=== PATIENT | female | born 1945 | race Caucasian/White ===

== ENCOUNTER → 2016-08-02 | Outpatient (CLI) | payer OTHER ==
[~2016-08-02] MED LIST: AMLO-114 PO; CALC500C70 PO; CARV3.122 PO; HYDR25TA4 PO; LOSA1TAB38 PO; POTA10CA28 PO; SIMV20TA2 PO
[2016-08-02 14:00] LABS: BLOOD UREA NITROGEN 16 mg/dl (7-18); BUN/CREATININE RATIO 15.9 (10-20); CALCIUM 9.5 mg/dl (8.5-10.1); CARBON DIOXIDE 33 mmol/L (21-32); CHLORIDE 97 mmol/L (98-107); GLUCOSE 108 mg/dl (70-99); POTASSIUM 3.8 mmol/L (3.5-5.1); SODIUM 135 mmol/L (136-145)
[2016-08-02 14:03] LABS: ALT/SGPT 19 U/L (12-78); AST/SGOT 16 U/L (15-37); CHOLESTEROL 162 mg/dl (0-200); CHOLESTEROL/HDL RATIO 1.6; HDL CHOLESTEROL 100 mg/dl; LDL CHOLESTEROL CALCULATED 54 mg/dl; TRIGLYCERIDES 41 mg/dl (0-150); VERY LOW DENSITY LIPOPROT CALC 8 mg/dl
== END | disposition home or self-care (01) ==
LOC: C.LABMFLN 07:31
PROVIDERS: ATTEND Family Medicine
DX: E78.00 Pure hypercholesterolemia, unspecified (principal); I10 Essential (primary) hypertension; I73.9 Peripheral vascular disease, unspecified

== ENCOUNTER → 2017-02-05 | Outpatient (CLI) | payer OTHER ==
[2017-02-05 13:39] LABS: BLOOD UREA NITROGEN 15 mg/dl (7-18); GLUCOSE 100 mg/dl (70-99)
[2017-02-05 13:40] LABS: ALT/SGPT 17 U/L (12-78); AST/SGOT 13 U/L (15-37); BUN/CREATININE RATIO 15.1 (10-20); CALCIUM 9.9 mg/dl (8.5-10.1); CARBON DIOXIDE 34 mmol/L (21-32); CHLORIDE 97 mmol/L (98-107); CHOLESTEROL 165 mg/dl (0-200); POTASSIUM 3.5 mmol/L (3.5-5.1); SODIUM 135 mmol/L (136-145); TRIGLYCERIDES 48 mg/dl (0-150); VERY LOW DENSITY LIPOPROT CALC 10 mg/dl
[2017-02-05 13:41] LABS: CHOLESTEROL/HDL RATIO 1.8; HDL CHOLESTEROL 90 mg/dl; LDL CHOLESTEROL CALCULATED 65 mg/dl
== END | disposition home or self-care (01) ==
LOC: C.LABMFLN 07:09
PROVIDERS: ATTEND Family Medicine
DX: E78.00 Pure hypercholesterolemia, unspecified (principal); I10 Essential (primary) hypertension; I73.9 Peripheral vascular disease, unspecified

== ENCOUNTER → 2017-03-11 | Outpatient (CLI) | payer OTHER ==
[~2017-03-11] VITALS: Ht 157.5 cm; Wt 50.7 kg
[2017-03-11 09:31] VITALS: Ht 157.5 cm; Wt 50.7 kg
--- NOTE | 2017-03-11 10:03 | PAT Medication Instructions ---
Service Date Mar 11, 2017. Current Home Medication List Amlodipine (Norvasc), 10 MG PO QAM Calcium/Vitamin D (Os-Jeet 500 Plus D), 1 TAB PO HS Carvedilol (Coreg), 1 TAB PO BID Hydrochlorothiazide (Hctz), 25 MG PO HS Losartan Potassium (Cozaar), 100 MG PO QAM Potassium Chloride (Micro-K Ext Rel), 10 MEQ PO QAM Simvastatin (Zocor), 20 MG PO QPM Medication Instructions For Your Scheduled Surgery - Hold the following medications the morning of surgery: Losartan Potassium (Cozaar), 100 MG PO QAM Potassium Chloride (Micro-K Ext Rel), 10 MEQ PO QAM - Take the following medications the morning of surgery with a sip of water OTHERWISE NOTHING TO EAT OR DRINK AFTER MIDNIGHT: Amlodipine (Norvasc), 10 MG PO QAM Carvedilol (Coreg), 1 TAB PO BID - Take the following medications as scheduled the night before surgery: Carvedilol (Coreg), 1 TAB PO BID Calcium/Vitamin D (Os-Jeet 500 Plus D), 1 TAB PO HS Hydrochlorothiazide (Hctz), 25 MG PO HS Simvastatin (Zocor), 20 MG PO QPM If you have any questions please call us at [phone] or [phone] or [phone]
[2017-03-11 10:49] LABS: BASO % 0.5 %; BASO ABS # 0.04 K/uL (0-0.2); COMPLETE YES; EOS % 1.5 %; HEMATOCRIT 43.4 % (37-47); IG% 0.2 %; LYMPH % 19.1 %; LYMPH ABS # 1.67 K/uL (1.2-3.4); MEAN CELL VOLUME 94.1 fL (80-100); MEAN CORPUSCULAR HEMOGLOBIN 32.8 pg (25-34); MEAN CORPUSCULAR HGB CONC 34.8 g/dl (32-36); MEAN PLATELET VOLUME 10.4 fL (7.4-10.4); MONO % 9.9 %; NEUT % 68.8 %; PLATELET COUNT 195 K/uL (130-400); RED BLOOD COUNT 4.61 M/uL (4.2-5.4); WHITE BLOOD COUNT 8.75 K/uL (4.8-10.8)
--- NOTE | 2017-03-11 10:59 | DIAGNOSTIC IMAGING REPORT ---
CHEST 2 VIEWS ROUTINE HISTORY: 71 years-old Female preadmission exam. COMPARISON: CTA of the abdomen and pelvis 01/26/2016 TECHNIQUE: Frontal and lateral views of the chest. FINDINGS: There is a 3.4 x 4.6 cm masslike opacity of the right lower lobe. There is blunting of the posterior costophrenic angles bilaterally. No pneumothorax identified. Cardiac silhouette is within normal limits. There is atherosclerosis of the aorta. The bones are grossly intact. Peripheral calcified aneurysm dilation of the proximal abdominal aorta is again noted. This measures up to approximately 4.7 cm in AP dimension. IMPRESSION: 1. Masslike opacity of the right lower lobe measuring up to 4.6 cm requires further evaluation with CT of the chest. 2. Mild blunting of the bilateral posterior costophrenic angles may be secondary to atelectasis or trace pleural effusions. 3. Tortuous partially calcified aneurysmal dilation of the proximal abdominal aorta is again noted. The above report was generated using voice recognition software. It may contain grammatical, syntax or spelling errors. Electronically signed by: Tung Mendez M.D. 03/11/2017 10:58 AM Dictated Date/Time: 03/11/2017 10:53 AM
[2017-03-11 11:06] LABS: PARTIAL THROMBOPLASTIN RATIO 1.1; PROTHROMBIN TIME (PATIENT) 11.2 SECONDS (9.0-12.0)
[2017-03-11 11:14] LABS: BUN/CREATININE RATIO 12.2 (10-20); CALCIUM 9.5 mg/dl (8.5-10.1); CREATININE 1.2 mg/dl (0.60-1.20); POTASSIUM 3.9 mmol/L (3.5-5.1)
== END | disposition home or self-care (01) ==
LOC: C.LAB 08:00 → EDSTATUS 03-20 10:47
PROVIDERS: ATTEND Surgery Vascular Surgery
DX: Z01.810 Encounter for preprocedural cardiovascular examination (principal); Z01.811 Encounter for preprocedural respiratory examination; Z01.812 Encounter for preprocedural laboratory examination; R91.8 Other nonspecific abnormal finding of lung field; I71.4 Abdominal aortic aneurysm, without rupture; R94.31 Abnormal electrocardiogram [ECG] [EKG]

== ENCOUNTER → 2017-03-15 | Outpatient (CLI) | payer OTHER ==
--- NOTE | 2017-03-15 09:47 | DIAGNOSTIC IMAGING REPORT ---
(CHEST) THORAX WITHOUT CT DOSE: 188.88 mGy.cm HISTORY: Follow-up chest x-ray abnormality. Possible LUNG NODULE, CHEST WITHOUT PER DR. LONDONO TECHNIQUE: Multiaxial CT images of the chest were performed without contrast. A dose lowering technique was utilized adhering to the principles of ALARA. COMPARISON: Chest 03/11/2017. FINDINGS: Small amount of mucoid material within the bilateral bronchi. Mild emphysema. No pneumothorax. Calcified granuloma seen within the base of the left lower lobe. Linear density at the lung bases favor subsegmental atelectasis. Minimal right pleural fluid. There is a 3.1 x 2.5 cm spiculated mass within the right lower lobe which abuts the right posterior pleura. There is also a 4.3 x 3.4 cm spiculated mass within the right infrahilar location of the right lower lobe. This surrounds multiple lower lobe bronchi. This abuts and retracts the right major fissure and may extend into the right middle lobe. There is mild nodular thickening of the right major fissure and mild interlobular septal thickening within the base the right lower lobe. This is concerning for lymphangitic spread of disease. No suspicious lytic or blastic osseous lesions. No supraclavicular or axillary lymphadenopathy. Visualized unenhanced liver, spleen, and adrenal glands are unremarkable. Atrophic right kidney. A 3.3 cm partially visualized abdominal aortic aneurysm. Calcified plaque within the thoracic aorta. The heart is normal in size. Mildly enlarged subcarinal lymph node measuring 1.5 x 1.2 cm. Mildly enlarged precarinal lymph node measuring 1.4 x 1.1 cm. These are concerning for sites of metastatic disease. IMPRESSION: 1. There are 2 masses within the right lower lobe which measure 3.1 x 2.5 cm and 4.3 x 3.4 cm. These are consistent with primary bronchogenic malignancy/metastatic disease. Bronchoscopy is recommended for further evaluation. 2. The larger right lower lobe mass abuts and retracts the right major fissure and may extend into the right middle lobe. There is also interlobular septal thickening within the right lower lobe and mild thickening of the right major fissure. This is concerning for lymphangitic spread of disease. 3. Mildly enlarged mediastinal and subcarinal lymph nodes. This is worrisome for metastatic spread of disease. 4. Emphysema. Electronically signed by: Frank Harrington M.D. 03/15/2017 9:45 AM Dictated Date/Time: 03/15/2017 9:32 AM
== END | disposition home or self-care (01) ==
LOC: C.CTS 08:59
PROVIDERS: ATTEND Family Medicine
DX: R91.1 Solitary pulmonary nodule (principal); R91.8 Other nonspecific abnormal finding of lung field; J43.9 Emphysema, unspecified

== ENCOUNTER 2017-09-04 13:51 | Inpatient (IN) | payer OTHER ==
[~2017-09-04] VITALS: Ht 157.5 cm; Wt 47.3 kg
[2017-09-04 14:11] VITALS: BP 143/62; PULSE 61; TEMP 36.5; BMI 18.1
[2017-09-04 14:12] VITALS: O2SAT 91
[2017-09-04] MEDS ORDERED: POLYETHYLENE (MIRALAX) 17 GM PACK PO PRN (15:15)
[2017-09-04] MEDS ORDERED: ACETAMINOPHEN 325 MG TAB PO PRN (15:15)
[2017-09-04] MEDS ORDERED: ALUMINUM/MAGNESIUM/SIMETH (MAALOX MAX) 30 ML UDC PO PRN (15:15)
[2017-09-04] MEDS ORDERED: MAGNESIUM HYDROXIDE SUSP 30 ML UDC PO PRN (15:15)
[2017-09-04] MEDS ORDERED: APIX1TAB3 PO (15:23)
[2017-09-04] MEDS ORDERED: POTA1CAP2 PO (15:23)
[2017-09-04] MEDS ORDERED: UMEC1AER INH (15:23)
[2017-09-04] MEDS: SODIUM CHLORIDE 0.9% 1000ML 1,000 ML IV SCH (16:05)
--- NOTE | 2017-09-04 16:07 | History and Physical ---
History & Physical Date & Time of Service: Sep 04, 2017 at 15:32 Chief Complaint: AKF Primary Care Physician: Rome Morris M.D. History of Present Illness Source: patient, family, clinic records, hospital records This is a 71 y/o female with a history of HTN, HLD, anemia, COPD, non-small cell lung carcinoma, CKD stage III, AAA, h/o DVT and PE on Eliquis, and PVD who presented for direct admission from PCP on 09/04 with acute renal failure, weakness, dehydration, vomiting, and diarrhea. The patient has a history of lung cancer for which she had been receiving chemotherapy. Her last session was 08/19. Since then, she states she has been more weak and fatigued. She has had very little/no appetite with intermittent nausea and vomiting. She also reports diarrhea, with 5-6 BMs a day for the last week. This has exacerbated her weakness. She also complains of dizziness with standing and was found to be orthostatic at her PCP. She has had multiple falls recently related to weakness and dizziness. She denies any head trauma or LOC. She twisted her ankle about 2 days ago. She went to the ER and a x-ray showed no fracture. The patient denies fevers, chills, sweats, chest pain, palpitations, claudication, cough, wheezing, shortness of breath, abdominal pain, dysuria, hematuria, urinary retention, hematochezia, paralysis, focal motor weakness, numbness and tingling. Past Medical/Surgical History HTN HLD Anemia COPD Non-small cell lung carcinoma CKD stage III AAA H/o DVT and PE PVD Family History Hypertension Stroke Social History Smoking Status: Former Smoker (quit December 2015) Smokeless Tobacco Use: No Alcohol Use: none Drug Use: none Marital Status: Housing status: lives with family (with son) Occupational Status: retired Allergies Coded Allergies: Lisinopril (Verified Adverse Reaction, Unknown, DRY HACKING COUGH, 03/11/17 ) Home Medications Scheduled Amlodipine (Norvasc), 10 MG PO QAM Apixaban (Eliquis), 5 MG PO BID Calcium/Vitamin D (Os-Jeet 500 Plus D), 1 TAB PO HS Carvedilol (Coreg), 1 TAB PO BID Losartan Potassium (Cozaar), 100 MG PO QAM Potassium Chloride (Micro-K Ext Rel), 20 MEQ PO QAM Potassium Chloride (Potassium Chloride Er), 1 CAP PO HS Umeclidinium-Vilanterol (Anoro Ellipta 62.5-25 Mcg/INH), 2 PUFFS INH DAILY Review of Systems Constitutional: +Weak and fatigued. No fever, No chills, No sweats Eyes: No worsening of vision, No eye pain, No diplopia ENT: No hearing loss, No nasal symptoms, No trouble swallowing Respiratory: No cough, No wheezing, No shortness of breath Cardiovascular: No chest pain, No claudication, No palpitations Abdomen: +Nausea, vomiting, diarrhea. No pain Musculoskeletal: +Left ankle sore. No muscle pain, No swelling Genitourinary - Female: No dysuria, No urinary retention, No hematuria Neurologic: No paralysis, No weakness, No numbness/tingling Integumentary: No rash, No itch, No color change Physical Exam Vital Signs Date Time Temp Pulse Resp B/P (MAP) Pulse Ox O2 Delivery O2 Flow Rate FiO2 09/04/17 14:12 91 Room Air 09/04/17 14:11 36.5 61 18 143/62 General appearance: +Underweight. Well-developed, well-nourished, no apparent distress Head: Normocephalic, atraumatic Eyes: Normal inspection, PERRL, EOMI ENT: Normal ENT inspection, hearing grossly normal, pharynx normal Neck: Supple, no JVD, trachea midline Respiratory/Chest: Lungs clear to auscultation, normal breath sounds, no respiratory distress Cardiovascular: Regular rate & rhythm, no gallop, no murmur Abdomen/GI: Normal bowel sounds, non-tender, soft Extremities/Musculoskeletal: +Left ankle in theodora wrap. Dorsal aspect left foot TTP. Normal inspection, no calf tenderness, no pedal edema Neurological/Psych: Alert, normal mood/affect, oriented x 3 Skin: Normal color, warm/dry, no rash Diagnostics Laboratory Results Results Past 24 Hours Test 09/04/17 15:09 Range/Units Microbiology Results 09/04/17 C.difficile Toxin B Gene (PCR), Ordered Pending 09/04/17 Shiga Toxin Test, Ordered Pending 09/04/17 Stool Culture, Ordered Pending Impression Assessment and Plan 71 y/o female with a history of HTN, HLD, anemia, COPD, non-small cell lung carcinoma, CKD stage III, AAA, h/o DVT and PE on Eliquis, and PVD who presented for direct admission from PCP on 09/04 with acute renal failure, weakness, dehydration, vomiting, and diarrhea. Acute renal failure on CKD stage III--baseline creatinine around 1.0 -Admit to telemetry -Creatinine 1.8 on 09/04 per outside labs -Hydrate with NSS at 80 cc/hr -Hold losartan for now N/V/D, weakness and fatigue -Likely related to recent chemo but will check for infectious sources -Check C. diff, stool culture -Check rapid flu -Check UA, culture if indicated -Check orthostatic BP q shift. Pt's BP at PCP was 78/40 upon standing HTN, HLD--BP currently stable -Continue Coreg 3.125 mg PO BID, hold if SBP less than 100 or HR less than 60 -Continue Norvasc 10 mg PO qd -Hold losartan as above. No longer on statin Anemia, likely secondary to chemo -Hgb 8.4, stable from last week 08/27 which was 8.7 -PLT down to 32, had been up to 81 last week -Hold Eliquis COPD, non-small cell lung carcinoma--pt wants to change oncologists -Consult heme/onc, appreciate recs especially w/regards to anticoagulation. Question if Eliquis best choice in setting of malignancy -Continue Anoro 2 puffs inh qd (non-formulary) H/o DVT and PE -Eliquis on hold as above -Consult vascular surgery to assess for IVC filter DVT prophylaxis -Hold chemical ppx due to PLT count 32 -SCDs Code Status -Level I, FULL RESUSCITATION STATUS I personally interviewed and examined the patient. I agree with history of present illness and physical exam mentioned above, I also performed my own history taking and examination. Past medical history and review of system has been obtained by myself I reviewed all pertinent labs and studies Reviewed current medications I discussed and formulated of the assessment and plan mentioned above. Please refer to the Summary mentioned below. 71-year-old woman with COPD/hypertension on chemotherapy for non-small cell lung cancer and history of DVT/PE on Eliquis presented to her primary care physician office with generalized weakness fatigue, multiple falls. Based on her blood work her creatinine jumped from 1 to 1.8 , also has diarrhea and decreased oral intake. Upon my interview with the patient and her family the were adamant that they want a new oncologist to take over care. Assessment Acute kidney injury on chronic kidney disease Chronic kidney disease stage II Diarrhea/decreased oral intake/nausea likely old because of her kidney disease Non-small cell lung cancer started chemotherapy on August 19 Multiple falls/dizziness Dehydration secondary to decreased oral intake and diarrhea COPD Hypertension, currently has orthostatic hypotension Thrombocytopenia Epistaxis History of DVT/PE on Eliquis Plan IV fluid hydration Monitor renal function and hold nephrotoxic Check urine analysis Consult oncologist Hold Eliquis due to thrombocytopenia and epistaxis Patient will need IVC filter Platelets are 30,000 in the setting of her frequent epistaxis we will hold Eliquis but will consult vascular surgeon for IVC filter General Appearance: not in acute distress, but appears cachectic Eyes: normal Sclerae, extraocular muscle intact ENT: hearing grossly normal Neck: supple Respiratory/Chest: normal air entry bilateral ,no respiratory distress, no accessory muscle use Cardiovascular: regular rate, rhythm, no murmur Abdomen: non tender, soft, no masses Extremities: no edema Neurologic/Psychiatric: Awake alert oriented times place and person moves all extremities sensation intact cranial nerves II-12 appear to be intact Skin: normal color, warm/dry, no rash Isaak Rush MD, [facility] Level of Care Telemetry Advanced Directives Existing Living Will: No Existing Power of Courtroom Reporter: No Resuscitation Status FULL RESUSCITATION VTE Prophylaxis VTE Risk Assessment Done? Y/N: Yes Risk Level: High Given or contraindicated: SCD's
[2017-09-04 16:23] VITALS: BP 109/47; PULSE 58; TEMP 36.4; O2SAT 91
[2017-09-04 16:39] LABS: INFLUENZA B ANTIGEN Neg for Influ B (NEG)
[2017-09-04] MEDS: NYSTATIN SUSP 500,000 U/5 ML UDC PO SCH ×2 (17:08→20:41)
[2017-09-04] MEDS: CARVEDILOL 3.125 MG TAB PO SCH (20:16)
[2017-09-04 20:36] VITALS: BP 115/45; PULSE 54; TEMP 36.8; O2SAT 91
[2017-09-04] MEDS: CALCIUM 600MG + VIT D 400 IU TAB PO SCH (20:41)
[2017-09-04] MEDS ORDERED: POTASSIUM CHLORIDE 10 MEQ TABCR PO SCH (21:00)
[2017-09-05] VITALS (9 sets, daily range): BP systolic 102–160; BP diastolic 44–67; PULSE 60–90; TEMP 36.7–37.1; O2SAT 90–94; Ht 157.5 cm; Wt 47.3 kg
[2017-09-05] MEDS: SODIUM CHLORIDE 0.9% 1000ML 1,000 ML IV SCH ×2 (04:16→17:25)
[2017-09-05 07:42] LABS: CALCIUM 8.9 mg/dl (8.5-10.1); CREATININE 1.6 mg/dl (0.60-1.20); POTASSIUM 4.8 mmol/L (3.5-5.1)
[2017-09-05] MEDS: CARVEDILOL 3.125 MG TAB PO SCH ×2 (07:45→20:21)
[2017-09-05] MEDS: NYSTATIN SUSP 500,000 U/5 ML UDC PO SCH ×4 (07:45→20:21)
[2017-09-05 07:51] LABS: HEMATOCRIT 25.9 % (37-47); HEMOGLOBIN 8.7 g/dL (12.0-16.0); MEAN CELL VOLUME 102.4 fL (80-100); MEAN CORPUSCULAR HEMOGLOBIN 34.4 pg (25-34); MEAN CORPUSCULAR HGB CONC 33.6 g/dl (32-36); MEAN PLATELET VOLUME 12.1 fL (7.4-10.4); PLATELET COUNT 35 K/uL (130-400); RED CELL DISTRIBUTION WIDTH CV 12.9 % (11.5-14.5); RED CELL DISTRIBUTION WIDTH SD 47.9 fL (36.4-46.3); WHITE BLOOD COUNT 3.73 K/uL (4.8-10.8)
--- NOTE | 2017-09-05 08:34 | Clinical Documentation Query ---
EUSEBIA Laura : CLINICAL DOCUMENTATION QUERY Patient is a 71 year old female admitted for treatment of BALAJI in the setting of N/V/D with associated decreased oral intake. Recently began chemotherapy August 19 for treatment of non-small cell lung cancer. Historical labs from 03/07 demonstrated normal WBC, RBC's, and platelets. This admission, noted neutropenia, anemia, and thrombocytopenia. As appropriate, consider clarification as suggested below as this impacts accurate DRG assignment. Thank you. In your clinical opinion is this patient being managed for: ( ) Antineoplastic chemotherapy induced pancytopenia ( ) Not Agree ( ) Other explanation of clinical findings (Please Explain) ( xx ) Unable to determine (Please Define) ( ) Need to Discuss The medical record reflects the following clinical findings, treatment, and risk factors. Clinical Indicators: As above Treatment: Holding of Eliquis, serial hematology, Oncology consultation Risk Factors: Chemotherapy Please clarify and document your clinical opinion in the progress notes and discharge summary. Terms such as "probable", "suspected", "likely", "questionable", "possible", or "still to be ruled out" are acceptable. IF IN AGREEMENT, YOU MUST DOCUMENT ABOVE DIAGNOSTIC STATEMENT IN DAILY PROGRESS NOTES AND DISCHARGE SUMMARY. This document is not part of the patient's record. Thank You, Rosendo Rao, STEPHANIE [phone]
--- NOTE | 2017-09-05 08:57 | Hospitalist Progress Note ---
Hospitalist Progress Note Date of Service Sep 05, 2017. (Alyssa Nguyen PA-C) Subjective Pt evaluation today including: conversation w/ patient, physical exam, chart review, lab review, review of studies Pain: None PO Intake: Fair Voiding: no voiding problems The patient was seen and examined this morning. Pt reports doing well this morning. She denies feeling as weak as she was yesterday. She also notes a slight improvement in her nausea, and was able to tolerate breakfast. She is still having diarrhea, liquid, and reports 2 BMs this morning. Nursing has been unable to collect a sample due to incontinence at the same time. Last chemotherapy session was on 08/19, #5/6 treatments. She has the next scheduled for 09/10. This most recent chemo tx was a different agent and was told she would likely not have as extreme side effects, however she feels her side effects are still the same including nausea, metallic taste in mouth, fatigue, skin dryness and peeling on her hands/feet, and diarrhea. With the earlier chemotherapy agent, she has gotten diarrhea about 3-4 days after her chemotherapy. Diarrhea began 7 days after her most recent treatment and has not been yet alleviated. Constitutional: + fatigue, No fever, No chills, No sweats Eyes: No redness, No diplopia ENT: + problem reported (metallic taste in mouth), No unusual epistaxis, No nasal symptoms, No sore throat, No trouble swallowing Respiratory: No cough, No sputum, No wheezing, No shortness of breath Cardiovascular: No chest pain, No palpitations Abdomen: + nausea, + diarrhea, No pain, No vomiting, No constipation, No GI bleeding Musculoskeletal: No joint pain, No muscle pain, No swelling Female : No dysuria, No hematuria Neurologic: + weakness, No memory loss, No numbness/tingling Endo: + fatigue (Alyssa Nguyen PA-C) Objective Vital Signs Date Time Temp Pulse Resp B/P (MAP) Pulse Ox O2 Delivery O2 Flow Rate FiO2 09/05/17 08:04 36.7 74 20 147/63 (91) 92 Room Air 09/05/17 08:00 91 Nasal Cannula 2.0 09/05/17 04:29 36.8 78 18 152/60 (90) 91 Nasal Cannula 2.0 09/05/17 04:10 Nasal Cannula 2.0 09/05/17 00:23 37.1 73 18 132/56 (81) 94 Nasal Cannula 2.0 80 131/44 (73) 90 102/53 (69) 09/04/17 23:40 Nasal Cannula 2.0 09/04/17 20:36 36.8 54 20 115/45 (68) 91 Room Air 09/04/17 20:00 Room Air 09/04/17 16:23 36.4 58 20 109/47 (67) 91 Room Air 09/04/17 16:00 Room Air 09/04/17 14:12 91 Room Air 09/04/17 14:11 36.5 61 18 143/62 (Alyssa Nguyen PA-C) Physical Exam General Appearance: WD/WN, no apparent distress, + thin, + pertinent finding ( small amount of hair regrowth, ) Eyes: PERRL, EOMI ENT: hearing grossly normal, pharynx normal, + pertinent finding (poor dentition, no erythema or skin sloughing inside mouth.) Neck: supple, no JVD Respiratory/Chest: chest non-tender, lungs clear, no respiratory distress, no accessory muscle use, + pertinent finding (on room air) Cardiovascular: regular rate, rhythm Abdomen: normal bowel sounds, non tender, soft Extremities: non-tender, no pedal edema, no calf tenderness, + pertinent finding (Left dorsal foot with faint ecchymosis, NTTP) Neurologic/Psychiatric: alert, normal mood/affect, oriented x 3 Skin: normal color, + pertinent finding (dry, peeling over hands and feet.) (Alyssa Nguyen PA-C) Laboratory Results Last 24 Hours Test 09/04/17 15:50 09/05/17 07:04 Influenza Type A Antigen Neg for Influ A Influenza Type B Antigen Neg for Influ B White Blood Count 3.73 K/uL Red Blood Count 2.53 M/uL Hemoglobin 8.7 g/dL Hematocrit 25.9 % Mean Corpuscular Volume 102.4 fL Mean Corpuscular Hemoglobin 34.4 pg Mean Corpuscular Hemoglobin Concent 33.6 g/dl RDW Standard Deviation 47.9 fL RDW Coefficient of Variation 12.9 % Platelet Count 35 K/uL Mean Platelet Volume 12.1 fL Sodium Level 137 mmol/L Potassium Level 4.8 mmol/L Chloride Level 108 mmol/L Carbon Dioxide Level 22 mmol/L Anion Gap 7.0 mmol/L Blood Urea Nitrogen 11 mg/dl Creatinine 1.60 mg/dl Est Creatinine Clear Calc Drug Dose 24.5 ml/min Estimated GFR () 37.7 Estimated GFR (Non- 32.5 BUN/Creatinine Ratio 6.7 Random Glucose 84 mg/dl Calcium Level 8.9 mg/dl (Alyssa Nguyen, PABenji) Assessment and Plan 71 y/o female with a history of HTN, HLD, anemia, COPD, non-small cell lung carcinoma, CKD stage III, AAA, h/o DVT and PE on Eliquis, and PVD who presented for direct admission from PCP on 09/04 with acute renal failure, weakness, dehydration, vomiting, and diarrhea. Acute renal failure on CKD stage III--baseline creatinine around 1.0 - Creatinine 1.8 on 09/04 per outside labs --improved to 1.6 - Hydrate with NSS at 80 cc/hr - Hold nephrotoxins, including losartan N/V/D, weakness and fatigue ? side effect from Chemotherapy for NSCLC - R/o infectious sources : C. diff, stool culture have been unable to be collected so far per nursing. - Influenza neg - UA appears to have been cancelled, pt denies urinary sx. - Follow orthostatics- had 30 point drop last night. Pt denies sx with standing and walking to bathroom today. NSCLC Antineoplastic chemotherapy induced pancytopenia - [facility] and she wishes to change oncologists. - Dr. Plummer has been consulted - appreciate his recs and will plan to continue care with our team as an outpatient. Records from [facility] will need to be obtained. appreciate recs especially w/regards to anticoagulation. Eliquis ok if plt > 50 so holding -Hgb 8.7, appears to be around baseline -PLT =35, had been up to 81 last week - will follow CBC and watch for further improvement. H/o DVT and PE - Clot determined to be new - discussed with Haven Jackson - vascular surg planning on placing a IVC filter tomorrow. NPO after midnight. HTN HLD -Continue Coreg 3.125 mg PO BID, hold if SBP less than 100 or HR less than 60, Norvasc 10 mg PO qd, holding losartan - not on statin therapy COPD -Continue Anoro 2 puffs inh qd (non-formulary) DVT ppx: Scds, no chemical anticoagulation in the setting of thrombocytopenia CODE : Full Disposition: From home, lives alone. PT/OT evals. Plan for IVC filter placement tomorrow. (Alyssa Nguyen PA-C) PA Physician Supervision Note: I interviewed and examined the patient. Discussed with Alyssa Nguyen PAC and agree with findings and plan as documented in the note. Any exceptions or clarifications are listed here: None Patient presents with persistent nausea vomiting diarrhea after chemotherapy for she's taking her non-small cell lung cancer. The patient has some renal distress because of this due to dehydration. The patient requests a second opinion from oncologist different than the one she is currently being treated reportedly she's had 5-6 treatments for her non-small cell lung cancer. The patient currently resting comfortably her family is surrounding her she's able tolerate oral intake at this time Vital signs are stable Patient looks chronically ill as which she is receiving chemotherapy she has short hair flaky skin and appears weak Her current lung exam is with changes of COPD with prolonged expiratory phase no focal air loss or wheezing or abdomen is normal active bowel sounds soft nontender Patient presents with renal distress from acute diarrheal illness likely contributed to by her recent chemotherapy will continue supportive care watching her renal function treating her underlying COPD and having opinion from Dr. Plummer Documented By: Que Rogel (Que Rogel M.D.)
[2017-09-05] MEDS ORDERED: POTASSIUM CHLORIDE 10 MEQ TABCR PO SCH (09:00)
[2017-09-05] MEDS ORDERED: LOSARTAN POTASSIUM 50 MG TAB PO SCH (09:00)
[2017-09-05] MEDS ORDERED: AMLODIPINE BESYLATE 5 MG TAB PO SCH (09:00)
--- NOTE | 2017-09-05 12:32 | Clinical Documentation Query ---
DELFINA MENDEZ : CLINICAL DOCUMENTATION QUERY Patient is a 71 year old female admitted for treatment of BALAJI in the setting of N/V/D with associated decreased oral intake. Recently began chemotherapy August 19 for treatment of non-small cell lung cancer. Historical labs from 03/07 demonstrated normal WBC, RBC's, and platelets. This admission, noted neutropenia, anemia, and thrombocytopenia. As appropriate, consider clarification as suggested below as this impacts accurate DRG assignment. Thank you. In your clinical opinion is this patient being managed for: ( x ) Antineoplastic chemotherapy induced pancytopenia ( ) Not Agree ( ) Other explanation of clinical findings (Please Explain) ( ) Unable to determine (Please Define) ( ) Need to Discuss The medical record reflects the following clinical findings, treatment, and risk factors. Clinical Indicators: As above Treatment: Holding of Eliquis, serial hematology, Oncology consultation Risk Factors: Chemotherapy Please clarify and document your clinical opinion in the progress notes and discharge summary. Terms such as "probable", "suspected", "likely", "questionable", "possible", or "still to be ruled out" are acceptable. IF IN AGREEMENT, YOU MUST DOCUMENT ABOVE DIAGNOSTIC STATEMENT IN DAILY PROGRESS NOTES AND DISCHARGE SUMMARY. This document is not part of the patient's record. Thank You, Rosendo Rao, STEPHANIE [phone]
--- NOTE | 2017-09-05 14:29 | Oncology Consultation ---
Oncology/Heme Consultation Date of Consultation: Sep 05, 2017. Attending Physician: Isaak Lima MD Reason for Consultation: History of lung carcinoma History of Present Illness Ms Harrison is a 71-year-old female with a history of lung carcinoma. She is a fair historian. She states she was diagnosed in February of last year. She states that she is unaware of where all the disease may have spread. She has been treated with chemotherapy. She believes it is only one drug and has been every 3 weeks with the last treatment being August 19. She is now admitted cytopenic and fatigued. She denies shortness of breath or chest pain. She denies any blood in her stool. She denies any hemoptysis. She has been on Eliquis for the past 2 years I believe after having a pulmonary embolus. She has expressed a desire to switch oncologists. Past Medical/Surgical History Lung carcinoma Pancytopenia History of pulmonary embolus Family History Hypertension Stroke Social History Smoking Status: Former Smoker (quit December 2015) Smokeless Tobacco Use: No Alcohol Use: none Drug Use: none Marital Status: Occupation Status: retired Allergies Coded Allergies: Lisinopril (Verified Adverse Reaction, Mild, DRY HACKING COUGH, 09/04/17) Home Medications Scheduled Amlodipine (Norvasc), 10 MG PO QAM Apixaban (Eliquis), 5 MG PO BID Calcium/Vitamin D (Os-Jeet 500 Plus D), 1 TAB PO HS Carvedilol (Coreg), 1 TAB PO BID Losartan Potassium (Cozaar), 100 MG PO QAM Potassium Chloride (Micro-K Ext Rel), 20 MEQ PO QAM Potassium Chloride (Potassium Chloride Er), 1 CAP PO HS Umeclidinium-Vilanterol (Anoro Ellipta 62.5-25 Mcg/INH), 2 PUFFS INH DAILY Current Inpatient Medications Current Inpatient Medications Medications (Trade) Dose Ordered Sig/Cassi Route Start Time Stop Time Status Last Admin Dose Admin Sodium Chloride 1,000 ml @ 80 mls/hr [id number] IV 09/04/17 15:09 10/04/17 15:08 09/05/17 04:16 80 MLS/HR Acetaminophen (Tylenol Tab) 650 mg Q4H PRN PO 09/04/17 15:15 10/04/17 15:14 Al Hydrox/Mg Hydrox/Simethicone (Maalox Max Susp) 15 ml Q4H PRN PO 09/04/17 15:15 10/04/17 15:14 Magnesium Hydroxide (Milk Of Magnesia Susp) 30 ml Q12H PRN PO 09/04/17 15:15 10/04/17 15:14 Ondansetron HCl (Zofran Inj) 4 mg Q6H PRN IV 09/04/17 15:15 10/04/17 15:14 Polyethylene (Miralax Powder Packet) 17 gm DAILY PRN PO 09/04/17 15:15 10/04/17 15:14 Calcium/Vitamin D (Caltrate Plus Tab) 1 tab HS PO 09/04/17 21:00 10/04/17 20:59 09/04/17 20:41 1 TAB Carvedilol (Coreg Tab) 3.125 mg BID PO 09/04/17 21:00 10/04/17 20:59 09/05/17 07:45 3.125 MG Miscellaneous Information (Order Awaiting Action) 1 ea QS N/A 09/04/17 16:00 10/04/17 15:59 Nystatin (Mycostatin Susp) 5 ml QID PO 09/04/17 17:00 09/14/17 16:59 09/05/17 13:05 5 ML Review of Systems Constitutional: Negative for weight loss, night sweats, or fever Eyes: Negative for event change of vision ENT: Negative for epistaxis, nasal discharge, sore throat, or deafness Cardiovascular: Negative for chest pain, palpitations, dizziness, diaphoresis Respiratory: Negative for new shortness of breath,hemoptysis, or purulent cough Gastrointestinal: Negative for diarrhea, hematemesis, melena, nausea, vomiting , or dyspepsia Integumentary (skin): Negative for rash or jaundice discoloration Genitourinary: Negative for urinary frequency, hematuria, or dysuria Neurological: Negative for weakness, seizure activity, headache, or dizziness Lymphatic/Hematologic: Negative for petechiae, bleeding or new adenopathy Musculoskeletal: Negative for new joint or back pain Allergic/Immunologic: Negative for unusual rash or pruritis. Physical Exam Date Time Temp Pulse Resp B/P (MAP) Pulse Ox O2 Delivery O2 Flow Rate FiO2 09/05/17 12:00 91 Nasal Cannula 2.0 09/05/17 12:00 36.8 60 18 141/67 (91) 91 Nasal Cannula 2.0 09/05/17 08:04 36.7 74 20 147/63 (91) 92 Room Air 09/05/17 08:00 91 Nasal Cannula 2.0 09/05/17 04:29 36.8 78 18 152/60 (90) 91 Nasal Cannula 2.0 09/05/17 04:10 Nasal Cannula 2.0 09/05/17 00:23 37.1 73 18 132/56 (81) 94 Nasal Cannula 2.0 80 131/44 (73) 90 102/53 (69) 09/04/17 23:40 Nasal Cannula 2.0 09/04/17 20:36 36.8 54 20 115/45 (68) 91 Room Air 09/04/17 20:00 Room Air 09/04/17 16:23 36.4 58 20 109/47 (67) 91 Room Air 09/04/17 16:00 Room Air Constitutional: vitals are stable. Mildly alopecic delightful female. Eyes: Eyes are CLAUDE EOMI without conjuctival erythema or icterus. ENT: External examination was negative for masses. Neck: Negative for masses or palpable thyromegaly Respiratory: Lung sounds were generally clear bilaterally Cardiovascular: Heart was RRR without significant murmur, gallops aoe rubs Gastrointestinal: No palpable hepatic or splenomegaly. The abdomen was soft with normal bowel sounds. Lymphatic system: there was no palpable peripheral lymphadenopathy Musculoskeletal System: The musculoskeletal system seemed concordant with age. Skin: The skin was negative for jaundice. Neurologic exam: The exam was negative for any focal findings. Deep tendon reflexes were equal and symmetrical. Psychiatric exam: Was essentially negative with normal mood and effect. Breast exam: Not done Extremities: negative for edema Laboratory Results Last 24 Hours Test 09/04/17 15:50 09/05/17 07:04 Influenza Type A Antigen Neg for Influ A Influenza Type B Antigen Neg for Influ B White Blood Count 3.73 K/uL Red Blood Count 2.53 M/uL Hemoglobin 8.7 g/dL Hematocrit 25.9 % Mean Corpuscular Volume 102.4 fL Mean Corpuscular Hemoglobin 34.4 pg Mean Corpuscular Hemoglobin Concent 33.6 g/dl RDW Standard Deviation 47.9 fL RDW Coefficient of Variation 12.9 % Platelet Count 35 K/uL Mean Platelet Volume 12.1 fL Sodium Level 137 mmol/L Potassium Level 4.8 mmol/L Chloride Level 108 mmol/L Carbon Dioxide Level 22 mmol/L Anion Gap 7.0 mmol/L Blood Urea Nitrogen 11 mg/dl Creatinine 1.60 mg/dl Est Creatinine Clear Calc Drug Dose 24.5 ml/min Estimated GFR () 37.7 Estimated GFR (Non- 32.5 BUN/Creatinine Ratio 6.7 Random Glucose 84 mg/dl Calcium Level 8.9 mg/dl Assessment & Plan History of non-small cell lung carcinoma according to the records. Her oncologic care has been in the [facility] and we will gather those records. She has expressed an interest to change oncology practices will arrange for follow-up. Cancer care partnership. In regards to the use of Eliquis as treatment for pulmonary embolus in the setting of carcinoma there has yet to be published definite data guideline data to support its use. However there are more more institutional efforts that demonstrate that the direct oral anticoagulants (DOACs -such as apixiban) are not inferior to the vitamin K antagonist and low molecular weight heparin in efficacy. In fact some of these studies do also demonstrate less complications both physical, quality of life, as well as financial with a drug like Eliquis. Subsequently although there are not confirmed guidelines to place the DO ACs as a therapeutic alternative there is more more data to suggest they could be used. With that then daily Eliquis could continue with her platelet count she is 50,000 or better. We will arrange for follow-up in our clinic. Her blood counts to be checked daily. She remains cytopenic presumably secondary to chemotherapy from August 19. Her blood counts in theory should recover very soon. Fortunately she is not febrile.
[2017-09-05] MEDS: ONDANSETRON INJ 2 MG/ML 2 ML VIAL IV PRN (14:46)
--- NOTE | 2017-09-05 15:18 | Surgery Consultation ---
Consultation Date of Service Sep 05, 2017. Chief Complaint Recent DVT/PE, need IVC filter History of Present Illness The patient is a 71 year old female with multiple medical problems, including HTN, AAA with aortic occlusion, lung ca on chemotherapy, seen in consultation today for IVC filter insertion d/t thrombocytopenia and epistaxis. Pt admits fatigue, malaise. States she had DVT/PE for first time in June 2017 and was started on Eliquis. States has had multiple epistaxis. 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 D/T her significant short distance claudication, pt was to undergo an axillobifemoral bypass. However, a lung mass was discovered during her preop workup and the procedure was not performed. Continues to c/o BLE claudication, LLE worse than RLE. Denies PEDRO, fever, chills, chest pain, SOB , abd pain, N/V, rest pain, other complaints. Vitals Vital Signs Past 12 Hours Date Time Temp Pulse Resp B/P (MAP) Pulse Ox O2 Delivery O2 Flow Rate FiO2 09/05/17 12:00 91 Nasal Cannula 2.0 09/05/17 12:00 36.8 60 18 141/67 (91) 91 Nasal Cannula 2.0 09/05/17 08:04 36.7 74 20 147/63 (91) 92 Room Air 09/05/17 08:00 91 Nasal Cannula 2.0 09/05/17 04:29 36.8 78 18 152/60 (90) 91 Nasal Cannula 2.0 09/05/17 04:10 Nasal Cannula 2.0 Allergies Coded Allergies: Lisinopril (Verified Adverse Reaction, Mild, DRY HACKING COUGH, 09/04/17) Home Medications Scheduled Amlodipine (Norvasc), 10 MG PO QAM Apixaban (Eliquis), 5 MG PO BID Calcium/Vitamin D (Os-Jeet 500 Plus D), 1 TAB PO HS Carvedilol (Coreg), 1 TAB PO BID Losartan Potassium (Cozaar), 100 MG PO QAM Potassium Chloride (Micro-K Ext Rel), 20 MEQ PO QAM Potassium Chloride (Potassium Chloride Er), 1 CAP PO HS Umeclidinium-Vilanterol (Anoro Ellipta 62.5-25 Mcg/INH), 2 PUFFS INH DAILY Problem List Medical Problems: (1) Acute renal failure (2) Weakness Surgical / Medical History Hx Cardiac Surgery: No Hx Abdominal Surgery: Yes (TUBAL) Hx Cancer Surgery: No Hx Thoracic Surgery: No Hx Urinary Tract Surgery: No Past Medical/Surgical History: COPD, Hypertension Family History Hypertension Stroke Social History Smoking Status: Former Smoker (quit December 2015) Hx Tobacco Use In Past Year?: No (QUIT 1 YEAR AGO, HX OF 1/2 PPD X20 YEARS) Hx Alcohol Use - Type & Amnt: No Hx Substance Use -Type & Amnt: No Review of Systems Constitutional: + malaise, No chills, No fever Skin: No change in color Eyes: No visual changes ENMT: No sore throat Respiratory: No cough, No MCCRAY, No hemoptysis, No short of breath Cardiovascular: + intermittent claudication, No chest pain, No palpitations, No syncope, No edema Gastrointestinal: No abdominal pain, No nausea, No vomiting Genitourinary - Female: No dysuria, No hematuria Neurologic: No dizziness, No headache, No lethargy, No numbness, No tingling Physical Exam Constitutional: General Apperance: cachectic, too thin Level of Distress: NAD, chronically ill Psychiatric: Mental Status: active & alert, normal mood, normal affect Orientation: oriented except where noted, to time, to place, to person Memory: recent memory normal, remote memory normal Head: normocephalic, atraumatic Eyes: EOM: EOMI ENMT: normal ENT inspection, hearing grossly normal Neck: supple, trachea midline Lungs: Respiratory effort: no dyspnea Auscultation: no rhonchi, decreased breath sounds Cardiovascular: Apical Impulse: not displaced Heart Auscultation: RRR, no rubs, no gallops Peripheral Pulses: Pulses: full and equal, in all extremities except if noted Bruits: none appreciated Carotid Pulse: normal on the left, normal on the right Brachial Pulses: normal on the left, normal on the right Radial Pulse: normal on the left, normal on the right Femoral Pulse: absent on the left, absent on the right Posterior Tibialis Pulse: absent on the left, absent on the right ( nonpalpable BLE), pertinent finding (Toes warm and pink with brisk cap refill) Dorsalis Pedis Pulse: absent on the left, absent on the right (nonpalpable BLE) Abdomen: Bowel Sounds: normal Inspection & Palpation: soft, non-distended, no tenderness, guarding & rebound Musculoskeletal: normal strength (5/5 throughout), normal tone Extremities: Upper Right: no cyanosis, no edema, no varicosities Upper Left: no cyanosis, no edema, no varicosities Lower Right: no cyanosis, no edema, no varicosities Lower Left: no cyanosis, no edema, no varicosities Neurologic: Cranial Nerves: grossly intact Sensation: grossly intact Assessment and Plan ASSESSMENT and PLAN: Recent DVT/PE Thrombocytopenia Pt also seen by Dr Louie, recommends pt to undergo IVC filter insertion d /t recent DVT/PE. Procedure, risks, benefits, and alternatives discussed with pt and family present, pt expresses understanding and agreement. Scheduled for tomorrow AM.
[2017-09-05] MEDS: BOOST BREEZE NUTRITION DRINK 1 BOX PO SCH (17:23)
[2017-09-05] MEDS: CALCIUM 600MG + VIT D 400 IU TAB PO SCH (20:20)
[2017-09-06] VITALS (10 sets, daily range): BP systolic 117–157; BP diastolic 47–65; PULSE 56–78; TEMP 36.6–37.1; O2SAT 90–95
[2017-09-06] MEDS: SODIUM CHLORIDE 0.9% 1000ML 1,000 ML IV SCH ×2 (05:17→16:51)
[2017-09-06] MEDS ORDERED: CEFAZOLIN 1000MG IV PUSH 7.5 ML IV SCH (06:00)
[2017-09-06 06:55] LABS: HEMATOCRIT 25.3 % (37-47); HEMOGLOBIN 8.6 g/dL (12.0-16.0); MEAN CELL VOLUME 100.8 fL (80-100); MEAN CORPUSCULAR HEMOGLOBIN 34.3 pg (25-34); RED CELL DISTRIBUTION WIDTH SD 48.1 fL (36.4-46.3); WHITE BLOOD COUNT 5.19 K/uL (4.8-10.8)
[2017-09-06 06:59] LABS: MEAN PLATELET VOLUME 10.6 fL (7.4-10.4); PLATELET COUNT 48 K/uL (130-400)
[2017-09-06] MEDS: BOOST BREEZE NUTRITION DRINK 1 BOX PO SCH ×2 (07:30→16:53)
[2017-09-06 07:32] LABS: CALCIUM 8.6 mg/dl (8.5-10.1); CREATININE 1.42 mg/dl (0.60-1.20)
[2017-09-06] MEDS: UMECLIDINIUM-VILANTEROL (ANORO) INH SCH (07:49)
[2017-09-06] MEDS: CARVEDILOL 3.125 MG TAB PO SCH ×2 (07:50→20:41)
[2017-09-06] MEDS: NYSTATIN SUSP 500,000 U/5 ML UDC PO SCH ×4 (07:50→20:41)
[2017-09-06] MEDS ORDERED: CEFAZOLIN IV 1,000 MG in DEXTROSE 5% 50ML 50 ML IV ONE (08:00)
--- NOTE | 2017-09-06 08:47 | Hospitalist Progress Note ---
Hospitalist Progress Note Date of Service Sep 06, 2017. (Alyssa Nguyen PA-C) Subjective Pt evaluation today including: conversation w/ patient, physical exam, chart review, lab review, review of studies Pain: None PO Intake: Good Voiding: no voiding problems The patient was seen and examined this morning. Pt reports doing well today. She is awaiting IVC filter placement this morning. She has no acute complaints this morning. Her two sisters are present at bedside and are keeping her company. PT feels stronger than yesterday. Diarrhea x 1 this morning, but reports this is improved from yesterday. She denies any other abdominal complaints. ROS: Constitutional: No fever, sweats or chills Eyes: No diplopia, no worsening or blurred vision ENT: normal hearing, no trouble swallowing, + metallic taste in mouth Respiratory: +Mild cough, no sputum production, minimally dyspneic on exertion, no dyspnea at rest Cardiovascular: No chest pain, tightness or palpitations Abdomen: No pain, nausea, vomiting, or constipation + diarrhea Musculoskeletal: No joint pain, calf pain, swelling Neurologic: No weakness, numbness/tingling, or balance problems Psychiatric: No anxiety or depression Skin: No rash or itch (Alyssa Nguyen PA-C) Objective Vital Signs Date Time Temp Pulse Resp B/P (MAP) Pulse Ox O2 Delivery O2 Flow Rate FiO2 09/06/17 07:55 37.0 66 18 127/58 (81) 95 09/06/17 04:43 37.0 56 20 131/58 (82) 90 Room Air 09/06/17 04:00 Room Air 09/06/17 00:06 36.8 71 18 118/47 (70) 90 Room Air 09/06/17 00:00 Room Air 09/05/17 20:27 36.7 80 18 160/65 (96) 90 Room Air 09/05/17 20:00 94 Room Air 09/05/17 17:00 36.9 78 18 128/63 (84) 92 Room Air 09/05/17 16:00 92 Room Air 09/05/17 12:00 91 Nasal Cannula 2.0 09/05/17 12:00 36.8 60 18 141/67 (91) 91 Nasal Cannula 2.0 (Alyssa Nguyen, AL) Physical Exam Notes: General Appearance: WD/WN, no apparent distress, + thin, + pertinent finding ( small amount of hair regrowth, diffuse darkened skin pigmentation ) Eyes: PERRL, EOMI ENT: hearing grossly normal, pharynx normal, + pertinent finding (poor dentition) Neck: supple, no JVD Respiratory/Chest: chest non-tender, lungs clear, no respiratory distress, no accessory muscle use, + pertinent finding (on room air) Cardiovascular: regular rate, rhythm Abdomen: normal bowel sounds, non tender, soft Extremities: non-tender, no pedal edema, no calf tenderness, + pertinent finding (Left dorsal foot with faint ecchymosis, NTTP) Neurologic/Psychiatric: alert, normal mood/affect, oriented x 3 Skin: normal color, + pertinent finding (dry, peeling over hands and feet.) (Alyssa Nguyen PA-C) Laboratory Results Last 24 Hours Test 09/05/17 17:35 09/06/17 06:45 Urine Color YELLOW Urine Appearance CLOUDY Urine pH 6.0 Urine Specific [place] 1.005 Urine Protein NEG Urine Glucose (UA) NEG Urine Ketones NEG Urine Occult Blood NEG Urine Nitrite NEG Urine Bilirubin NEG Urine Urobilinogen NEG Urine Leukocyte Esterase TRACE Urine WBC (Auto) 1-5 /hpf Urine RBC (Auto) 0-4 /hpf Urine Hyaline Casts (Auto) 1-5 /lpf Urine Epithelial Cells (Auto) >30 /lpf Urine Bacteria (Auto) NEG White Blood Count 5.19 K/uL Red Blood Count 2.51 M/uL Hemoglobin 8.6 g/dL Hematocrit 25.3 % Mean Corpuscular Volume 100.8 fL Mean Corpuscular Hemoglobin 34.3 pg Mean Corpuscular Hemoglobin Concent 34.0 g/dl RDW Standard Deviation 48.1 fL RDW Coefficient of Variation 13.0 % Platelet Count 48 K/uL Mean Platelet Volume 10.6 fL Sodium Level 140 mmol/L Potassium Level 4.0 mmol/L Chloride Level 110 mmol/L Carbon Dioxide Level 23 mmol/L Anion Gap 8.0 mmol/L Blood Urea Nitrogen 7 mg/dl Creatinine 1.42 mg/dl Est Creatinine Clear Calc Drug Dose 27.8 ml/min Estimated GFR () 43.6 Estimated GFR (Non- 37.6 BUN/Creatinine Ratio 4.9 Random Glucose 90 mg/dl Calcium Level 8.6 mg/dl (Alyssa Nguyen, [place]) Assessment and Plan 71 y/o female with a history of HTN, HLD, anemia, COPD, non-small cell lung carcinoma, CKD stage III, AAA, h/o DVT and PE on Eliquis, and PVD who presented for direct admission from PCP on 09/04 with acute renal failure, weakness, dehydration, vomiting, and diarrhea. Acute renal failure on CKD stage III--baseline creatinine around 1.0 - Creatinine 1.8 on 09/04 per outside labs --improved to 1.6 - Hydrate with NSS at 80 cc/hr - Hold nephrotoxins, including losartan N/V/D, weakness and fatigue ? side effect from Chemotherapy for NSCLC - R/o infectious sources: C. diff, stool culture have been unable to be collected so far per nursing. - Influenza neg - UA appears to have been cancelled, pt denies urinary sx. - Follow orthostatics- Pt denies sx with standing and walking to bathroom today. NSCLC Antineoplastic chemotherapy induced pancytopenia - The patients care has been with Dr. Foote, [facility] and she wishes to change oncologists. - Dr. Plummer has been consulted - appreciate his recs and will plan to continue care with our team as an outpatient. Records from [facility] will need to be obtained. appreciate recs especially w/regards to anticoagulation, holding eliquis. IVC filter being placed today. Will resume eliquis once plt count is > 50 K per Heme/onc. -Hgb 8.6, appears to be around baseline -PLT =48, had previously been up to 81 last week - will follow CBC and watch for further improvement. H/o DVT and PE - Clot determined to be new - discussed with Haven Jackson - vascular surg planning on placing a IVC filter today. HTN HLD - Continue Coreg 3.125 mg PO BID, hold if SBP less than 100 or HR less than 60, Norvasc 10 mg PO qd, holding losartan - not on statin therapy COPD -Continue Anoro 2 puffs inh qd (non-formulary) DVT ppx: Scds, no chemical anticoagulation in the setting of thrombocytopenia, can resume if plt > 50 tomorrow. CODE : Full Disposition: From home, lives alone. PT/OT evals. IVC filter placement today. (Alyssa Nguyen, AL) i personally examined pt and verified all forrester points concetta Nguyen PAC feeling ok post IVC filter thinsk she'll lbe able to do OK going home once she has a chance to recover eating reaosnably vitals noted nad breathing unlabored no pallor or icterus thrombocytopenia and VTE - IVC filter for protection when anticoagulation has to be held otherwise as above stable for med surg, hopefully home tomorrow (Taz Perera D.O.)
--- NOTE | 2017-09-06 10:35 | Progress Note ---
Progress Note Date of Service Sep 06, 2017. Progress Note Patient for insertion of a vena cava filter today. I have discussed the risks options and benefits of the procedure with the patient. The patient understands the risks options and benefits and agrees to the procedure. I have examined the patient, reviewed the History & Physical and in the interval since the performance of the History & Physical I have noted the following changes of clinical significance: No changes noted
[2017-09-06] MEDS ORDERED: FENTANYL CITRATE INJ 50 MCG/1 ML 2 ML VIAL ONE (10:50)
[2017-09-06] MEDS ORDERED: MIDAZOLAM HCL 1 MG/ML 2ML VIAL ONE (10:51)
--- NOTE | 2017-09-06 11:01 | Pre Sedation Assessment ---
Pre Sedation Assessment General Date of Sedation: Sep 06, 2017. Vital Signs Past 12 Hours Date Time Temp Pulse Resp B/P (MAP) Pulse Ox O2 Delivery O2 Flow Rate FiO2 09/06/17 10:49 36.6 62 18 136/51 (79) 91 Room Air 09/06/17 08:00 Room Air 09/06/17 07:55 37.0 66 18 127/58 (81) 95 09/06/17 04:43 37.0 56 20 131/58 (82) 90 Room Air 09/06/17 04:00 Room Air 09/06/17 00:06 36.8 71 18 118/47 (70) 90 Room Air 09/06/17 00:00 Room Air Pre-Sedation Airway Assessment Smoking Status: Former Smoker (quit December 2015) Hx of Sleep Apnea: No Hx of difficult intubation: No Short Thick Neck: No Thyro-mental Distance: > 3 Finger Breadths Oral Cavity: WNL Mallampati Classification: Class I NPO Status Date of Last Intake of Fluids: Sep 06, 2017 Time of Last Intake of Fluids: 00:00 Date of Last Intake of Solids: Sep 06, 2017 Time of Last Intake of Solids: 00:00 Procedure Planning Contraindications for Sedation: None Current Medications Reviewed: Yes Notes The planned sedation has been discussed with the patient. Informed Consent was obtained. I have identified the patient, determined the appropriateness of sedation and have assessed the patient immediately prior to the procedure. All medicine(s) and interventions are by my order.
[2017-09-06] MEDS ORDERED: LIDOCAINE HCL 1% 20 ML VIAL INJ ONE (11:27)
--- NOTE | 2017-09-06 11:40 | [facility] Post Operative Brief Note ---
Immediate Operative Summary Operative Date Sep 06, 2017. Pre-Operative Diagnosis Recent DVT/PE Thrombocytopenia Post-Operative Diagnosis Recent DVT/PE Hypercoaguable Thrombocytopenia Procedure(s) Performed Inferior Vena Cava Filter Placement, Right Femoral Approach Surgeon [employer] Executive Surgeon(s) Pablo Estimated Blood Loss 2 Findings Consistent with Post-Op Diagnosis Specimens None Drains None Anesthesia Type Local Complication(s) none Disposition Accompanied Pt To Recover: no Disposition:
[2017-09-06] MEDS ORDERED: IODIXANOL (VISIPAQUE) 270 MG/ML 50ML IV ONE (11:46)
--- NOTE | 2017-09-06 11:57 | DIAGNOSTIC IMAGING REPORT ---
DATE OF PROCEDURE: 09/06/2017 PREOPERATIVE DIAGNOSIS: Deep venous thrombosis, PE. POSTOPERATIVE DIAGNOSIS: Deep venous thrombosis, PE. PROCEDURE: Placement of IVC filter from right common femoral vein access under ultrasound guidance with fluoroscopy for positioning. SURGEON: Dr. Jamar Louie. WINE SPECIALIST: Dr. Becca Shah. ANESTHESIA: Local anesthesia. COMPLICATIONS: None. ESTIMATED BLOOD LOSS: 2 mL. INDICATIONS: Mrs. Marie Harrison a 71-year-old woman with history of hypertension, hyperlipidemia, anemia, COPD, nonsmall cell lung cancer, stage III kidney disease, abdominal aortic aneurysm; DVT and PE. She was previously treated for her DVT and PE with Eliquis; however, this resulted in significant epistasis. For this reason, her Eliquis was discontinued and she was recommended to undergo IVC filter placement. Of note, her DVT and PE were in June 2017. Risks, benefits and alternatives were discussed with the patient and she consented to the procedure. DESCRIPTION OF PROCEDURE: The patient was taken to the endovascular suite and placed in the supine position. Her right femoral vein was assessed with ultrasound and appeared patent with good respiratory variation and augmentation. It was compressible on ultrasound. The right groin was then prepped and draped in the usual sterile fashion. A safety timeout was performed and the patient, procedure, and sidedness were correctly identified. Ultrasound was again used to identify the right common femoral vein. Local anesthesia was used to anesthetize the skin in this area. An 18-gauge access needle was used to access the right common femoral vein under ultrasound guidance. A guidewire easily passed through the needle and into the inferior vena cava. The needle was removed and a long sheath placed in the right common femoral. A cavogram was obtained and showed the position of the renal veins. The IVC filter was advanced into the sheath and the sheath was withdrawn deploying the IVC filter. The filter deployed without difficulty and appeared to be in good position. The sheath was removed and manual pressure was held over the common femoral vein access site for several minutes with good hemostasis. The patient tolerated the procedure well and there were no immediate complications. She was transferred to the recovery area in stable condition. Dr. Jamar Louie was present for the entire procedure. [facility]ALTH CENTERPayam
[2017-09-06] MEDS: ONDANSETRON INJ 2 MG/ML 2 ML VIAL IV PRN (20:17)
[2017-09-06] MEDS: CALCIUM 600MG + VIT D 400 IU TAB PO SCH (20:41)
[2017-09-07] VITALS (13 sets, daily range): BP systolic 139–174; BP diastolic 53–77; PULSE 50–70; TEMP 36.5–37; O2SAT 90–95
[2017-09-07 06:26] LABS: HEMOGLOBIN 7.8 g/dL (12.0-16.0); MEAN CELL VOLUME 102.6 fL (80-100); MEAN CORPUSCULAR HEMOGLOBIN 33.3 pg (25-34); MEAN CORPUSCULAR HGB CONC 32.5 g/dl (32-36); RED CELL DISTRIBUTION WIDTH CV 12.9 % (11.5-14.5); RED CELL DISTRIBUTION WIDTH SD 47.9 fL (36.4-46.3); WHITE BLOOD COUNT 4.22 K/uL (4.8-10.8)
[2017-09-07 06:28] LABS: MEAN PLATELET VOLUME 10.9 fL (7.4-10.4); PLATELET COUNT 57 K/uL (130-400)
[2017-09-07 07:13] LABS: CALCIUM 8.1 mg/dl (8.5-10.1); CREATININE 1.3 mg/dl (0.60-1.20); POTASSIUM 3.4 mmol/L (3.5-5.1)
[2017-09-07] MEDS ORDERED: POTASSIUM CHLORIDE 10 MEQ TABCR PO STA (09:16)
[2017-09-07] MEDS: SODIUM CHLORIDE 0.9% 1000ML 1,000 ML IV SCH (09:16)
[2017-09-07] MEDS: UMECLIDINIUM-VILANTEROL (ANORO) INH SCH (09:17)
[2017-09-07] MEDS: CARVEDILOL 3.125 MG TAB PO SCH (09:18)
[2017-09-07] MEDS: NYSTATIN SUSP 500,000 U/5 ML UDC PO SCH ×3 (09:18→17:48)
[2017-09-07] MEDS: BOOST BREEZE NUTRITION DRINK 1 BOX PO SCH ×2 (10:15→17:45)
--- NOTE | 2017-09-07 10:31 | Hematology/Oncology Prog Note ---
Hematology/Onc Progress Note Date of Service Sep 07, 2017. Diagnoses History of metastatic lung carcinoma Medications Medications Administered Medications (Trade) Dose Ordered Sig/Cassi Route Start Time Stop Time Status Last Admin Dose Admin Sodium Chloride 1,000 ml @ 80 mls/hr [id number] IV 09/04/17 15:09 10/04/17 15:08 09/07/17 09:16 80 MLS/HR Ondansetron HCl (Zofran Inj) 4 mg Q6H PRN IV 09/04/17 15:15 10/04/17 15:14 09/06/17 20:17 4 MG Calcium/Vitamin D (Caltrate Plus Tab) 1 tab HS PO 09/04/17 21:00 10/04/17 20:59 09/06/17 20:41 1 TAB Carvedilol (Coreg Tab) 3.125 mg BID PO 09/04/17 21:00 10/04/17 20:59 09/07/17 09:18 3.125 MG Nystatin (Mycostatin Susp) 5 ml QID PO 09/04/17 17:00 09/14/17 16:59 09/07/17 09:18 5 ML Enteral Nutritional Formula (Boost Breeze Nutritional Drink) 1 box BIDM PO 09/05/17 16:45 10/05/17 16:44 09/07/17 10:15 1 BOX Cefazolin Sodium 7.5 ml @ 1.667 mls/ min PREOP IV 09/06/17 06:00 09/06/17 18:00 DC 09/06/17 11:06 1.667 MLS/MIN Lidocaine HCl (Xylocaine 1% Inj (Local)) 2 ml ONE ONCE INJ 09/06/17 11:27 09/06/17 11:47 DC 09/06/17 11:27 2 ML Iodixanol (Visipaque 50ml) 4,050 mg ONE ONCE IV 09/06/17 11:46 09/06/17 11:47 DC 09/06/17 11:46 4,050 MG Potassium Chloride (Klor-Con M10) 40 meq NOW STAT PO 09/07/17 09:16 09/07/17 09:33 DC 09/07/17 10:14 40 MEQ Subjective IVC filter placed yesterday she seems to be doing well. She really denies any new complaints. Review of Systems: Constitutional: Negative for night sweats, or fever Eyes: Negative for event change of vision ENT: Negative for epistaxis, nasal discharge, sore throat, or deafness Cardiovascular: Negative for chest pain, palpitations, dizziness, diaphoresis Respiratory: Negative for new shortness of breath,hemoptysis, or purulent cough Gastrointestinal: Negative for diarrhea, hematemesis, melena, nausea, vomiting , or dyspepsia Integumentary (skin): Negative for rash or jaundice discoloration Neurological: Negative for weakness, seizure activity, headache, or dizziness Lymphatic/Hematologic: Negative for petechiae, bleeding or new adenopathy Musculoskeletal: Negative for new joint or back pain Allergic/Immunologic: Negative for unusual rash or pruritis. Vital Signs Vital Signs Past 12 Hours Date Time Temp Pulse Resp B/P (MAP) Pulse Ox O2 Delivery O2 Flow Rate FiO2 09/07/17 07:27 Room Air 09/07/17 07:27 36.6 70 16 164/63 (96) 91 Room Air 09/06/17 23:28 37.0 68 14 117/55 (75) 91 Room Air Physical Exam Constitutional: vitals are stable. Alert delightful mildly alopecic female Eyes: Eyes are CLAUDE EOMI without conjuctival erythema or icterus. ENT: External examination was negative for masses. Neck: Negative for masses or palpable thyromegaly Respiratory: Lung sounds were generally clear bilaterally Cardiovascular: Heart was RRR without significant murmur, gallops aoe rubs Gastrointestinal: No palpable hepatic or splenomegaly. The abdomen was soft with normal bowel sounds. Lymphatic system: there was no palpable peripheral lymphadenopathy Musculoskeletal System: The musculoskeletal system seemed concordant with age. Skin: The skin was negative for jaundice. Neurologic exam: The exam was negative for any focal findings. Deep tendon reflexes were equal and symmetrical. Psychiatric exam: Was essentially negative with normal mood and effect. Extremities: without edema Laboratory Last 24 Hours Test 09/06/17 20:23 09/07/17 05:48 09/07/17 10:00 Bedside Glucose 107 mg/dl White Blood Count 4.22 K/uL Red Blood Count 2.34 M/uL Hemoglobin 7.8 g/dL 7.9 g/dL Hematocrit 24.0 % Mean Corpuscular Volume 102.6 fL Mean Corpuscular Hemoglobin 33.3 pg Mean Corpuscular Hemoglobin Concent 32.5 g/dl RDW Standard Deviation 47.9 fL RDW Coefficient of Variation 12.9 % Platelet Count 57 K/uL Mean Platelet Volume 10.9 fL Sodium Level 142 mmol/L Potassium Level 3.4 mmol/L Chloride Level 111 mmol/L Carbon Dioxide Level 23 mmol/L Anion Gap 8.0 mmol/L Blood Urea Nitrogen 5 mg/dl Creatinine 1.30 mg/dl Est Creatinine Clear Calc Drug Dose 30.5 ml/min Estimated GFR () 48.5 Estimated GFR (Non- 41.8 BUN/Creatinine Ratio 3.9 Random Glucose 80 mg/dl Calcium Level 8.1 mg/dl Assessment & Plan He seems stable. Platelet count now are 50,000. If tomorrow's count is the same then Roxannerainajassi can start. She may need a unit of blood (Hb. 7.8). A follow- up will be arranged in our clinic. We have begun the process of obtaining her records from her oncologist in [place].
[2017-09-07] MEDS ORDERED: ONDA8TAB62 SL (13:08)
--- NOTE | 2017-09-07 13:14 | Discharge Instructions ---
Discharge Instructions Date of Service Sep 07, 2017. Admission Reason for Admission: AKF Discharge Discharge Diagnosis / Problem: dehydration - related to chemotherapy side effects Discharge Goals Goal(s): Diagnostic testing, Therapeutic intervention Activity Recommendations Activity Limitations: resume your previous activity . Instructions / Follow-Up Instructions / Follow-Up dehydration -the main thing that was making you feel so ill was dehydration related to your chemotherapy -unfortunately this will happen from side effects from the medication - we've written a prescription for dissolving zofran (ondansetron) to try to help you stay ahead of nausea at home, but of course if you feel like you're losing ground with fluid intake, we'd prefer you get seen sooner rather than later -we've held your losartan (cozaar) - a blood pressure medication -- while it normally is a very beneficial medication for blood pressure, when you get dehydrated it can "upset" your kidneys a good deal, so we'll have you not take it for the time being to be safe -have follow up labwork (BMP) checked on Saturday blood clots -your platelet counts were low enough that we had to stop your blood thinner ( eliquis, apixaban) -- now your numbers are improved enough you can restart this tomorrow -since your chemo will likely make your platelet counts go low from time to time , we expect the ability to stay on the blood thinner to be "on again, off again " based on your numbers - to keep you safe from the clots when you have to be off the blood thinner, the filter device was placed to catch clot fragments. it 's not as good a treatment for clots as the actual blood thinner, but is a very solid safety measure for when the blood thinner has to be held -have labwork checked (CBC) on Saturday to follow up on this as well anemia -much as the chemo drops your platelets, it can also drop your red cells ( hemoglobin) - while your numbers weren't dangerously low, Dr Plummer from oncology wisely felt that you would benefit from a transfusion since your bone marrow isn't likely to be able to make enough new red cells to keep up -your oncology team will keep an eye on your counts periodically - with the next counts to be on saturday as above Current Hospital Diet Patient's current hospital diet: Low Sodium Diet (2gm Na) Discharge Diet Recommended Diet: Low Sodium Diet (2gm Na) Procedures Procedures Performed: Inferior Vena Cava Filter Placement, Right Femoral Approach Pending Studies Studies pending at discharge: no Medical Emergencies . Who to Call and When: Medical Emergencies: If at any time you feel your situation is an emergency, please call 911 immediately. . Non-Emergent Contact Non-Emergency issues call your: Primary Care Provider, Oncologist . . "Provider Documentation" section prepared by Taz Perera. . VTE Core Measure Inpt VTE Proph given/why not?: SCD's
--- NOTE | 2017-09-07 20:16 | Discharge Summary ---
Discharge Summary Date of Service Sep 07, 2017. Discharge Summary Admission Date: Sep 04, 2017 at 13:51 Discharge Date: Sep 07, 2017 Discharge Disposition: Home Principal Diagnosis: dehydration related ARF Procedures: IVC filter placement Last Resulted CBC 09/07/17 05:48 09/07/17 10:00 OF NOTE, WAS TRANSFUSED 2 UNITS PRBC IN RESPONSE TO PERSISTENT HGB HIGH 7.x RANGE PRIOR TO DISCHARGE Last Resulted BMP 09/07/17 05:48 (was given 40meq KCL PO prior to discharge) Consultations: hematology/oncology vascular surgery Medication Reconciliation New Medications: Ondansetron Odt (Zofran Odt) 8 Mg Soltab 8 MG SL Q6H PRN for Nausea, #30 TAB Continued Medications: Amlodipine (Norvasc) 10 Mg Tab 10 MG PO QAM, TAB Apixaban (Eliquis) 5 Mg Tab 5 MG PO BID, TAB Calcium/Vitamin D (Os-Jeet 500 Plus D) Tab 1 TAB PO HS, TAB Carvedilol (Coreg) 3.125 Mg Tab 1 TAB PO BID for 90 Days, #180 TAB 3 Refills Potassium Chloride (Micro-K Ext Rel) 10 Meq Capcr 20 MEQ PO QAM, CAP Potassium Chloride (Potassium Chloride Er) 10 Meq Cap 1 CAP PO HS for 90 Days, CAP 1 Refill Umeclidinium-Vilanterol (Anoro Ellipta 62.5-25 Mcg/INH) 1 Aer Aer 2 PUFFS INH DAILY Discontinued Medications: Losartan Potassium (Cozaar) 100 Mg Tab 100 MG PO QAM, TAB Discharge Exam Physical Exam: General Appearance: no apparent distress Eyes: EOMI Neck: trachea midline Respiratory/Chest: no respiratory distress, no accessory muscle use Extremities: normal inspection Neurologic/Psychiatric: 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 as tested, alert, normal mood/affect Skin: normal color, warm/dry Hospital Course Acute renal failure apearing related to dehydration --baseline creatinine around 1.0 (so although this may calculate to stage 3 CKD by cockroft gault, i question the accuracy of this in actually "labelling" her with true CKD given a normal baseline of creatine) - Creatinine 1.8 on 09/04 per outside labs --improved to 1.3 and with good PO intake anticipate ongoing improvement - BMP early next week - Hold nephrotoxins, including losartan for foreseeable future since ongoing chemo likely to have high risk for provoking recurrent dehydration N/V/D, weakness and fatigue appearing side effect from Chemotherapy for NSCLC - improved NSCLC Antineoplastic chemotherapy induced pancytopenia - The patients care has been with Gasper Cordovatonany Diaz and she wishes to change oncologists. - Dr. Plummer has been consulted - appreciate his recs and will plan to continue care with our team as an outpatient. [facility] from [facility] will need to be obtained. appreciate recs especially w/regards to anticoagulation, holding eliquis. IVC filter being placed today. Will resume eliquis once plt count is > 50 K per Heme/onc. anemia -related to chemo -heme/onc suggested transfusion - given 2 units prior to discharge thrombocytopenia -improving - can safely take eliquis when plt > 50; however, IVC filter placed since active clots and chemo likely to frequently reduce platelets to where anticoagulation is not safe DVT and PE - Clot determined to be new - and because current cancer treatment likely to cause "up and down" of platelets making anticoagulation contraindicated at times , but also because new PE would have potential to be devastating to her well- being, IVC filter placed to protect her during times that anticoagulation cannot be used HTN - reasonable control holding losartan as above - Continue Coreg 3.125 mg PO BID, hold if SBP less than 100 or HR less than 60, Norvasc 10 mg PO qd, holding losartan COPD -Continue Anoro 2 puffs inh qd felt well enough to go home - stable for home with family CBC, BMP early next week Total Time Spent: Less than 30 minutes This includes examination of the patient, discharge planning, medication reconciliation, and communication with other providers. Discharge Instructions Please refer to the electronic Patient Visit Report (Discharge Instructions) for additional information. Additional Copies To Rome Morris M.D.
== END 2017-09-07 20:55 | disposition home or self-care (01) | DRG 673 ==
LOC: C.2T 13:51 → ENRESERV 09-06 19:54 → C.MSN 09-06 21:39
PROVIDERS: ADMIT Internal Medicine; ATTEND Family Medicine
PROC: 06H03DZ Insertion of Intraluminal Device into Inferior Vena Cava, Percutaneous Approach (ICD-10-PCS; principal; 2017-09-06 11:00)
DX: N17.9 Acute kidney failure, unspecified (principal); D61.810 Antineoplastic chemotherapy induced pancytopenia; C34.90 Malignant neoplasm of unspecified part of unspecified bronchus or lung; I12.9 Hypertensive chronic kidney disease with stage 1 through stage 4 chronic kidney disease, or unspecified chronic kidney disease; E86.0 Dehydration; J44.9 Chronic obstructive pulmonary disease, unspecified; N18.3 Chronic kidney disease, stage 3 (moderate); I37.9 Nonrheumatic pulmonary valve disorder, unspecified; I71.4 Abdominal aortic aneurysm, without rupture; Z87.891 Personal history of nicotine dependence; Z79.01 Long term (current) use of anticoagulants; Z86.711 Personal history of pulmonary embolism; Z88.8 Allergy status to other drugs, medicaments and biological substances; Z86.718 Personal history of other venous thrombosis and embolism

== ENCOUNTER → 2017-09-09 | Outpatient (CLI) | payer OTHER ==
[~2017-09-09] MED LIST changes: +APIX1TAB3 PO; -HYDR25TA4 PO; -LOSA1TAB38 PO; +ONDA8TAB62 SL; +POTA1CAP2 PO; -SIMV20TA2 PO; +UMEC1AER INH
[2017-09-09 12:33] LABS: HEMATOCRIT 33.7 % (37-47); HEMOGLOBIN 11.3 g/dL (12.0-16.0); MEAN CORPUSCULAR HEMOGLOBIN 32.8 pg (25-34); MEAN CORPUSCULAR HGB CONC 33.5 g/dl (32-36); MEAN PLATELET VOLUME 11.1 fL (7.4-10.4); PLATELET COUNT 77 K/uL (130-400); RED CELL DISTRIBUTION WIDTH CV 16.2 % (11.5-14.5); RED CELL DISTRIBUTION WIDTH SD 58.5 fL (36.4-46.3)
[2017-09-09 13:11] LABS: BLOOD UREA NITROGEN 5 mg/dl (7-18); CALCIUM 8.2 mg/dl (8.5-10.1); CARBON DIOXIDE 25 mmol/L (21-32); CREATININE 1.38 mg/dl (0.60-1.20); GLUCOSE 95 mg/dl (70-99); POTASSIUM 4.4 mmol/L (3.5-5.1); SODIUM 140 mmol/L (136-145)
== END | disposition home or self-care (01) ==
LOC: C.LABMFLN 08:00
PROVIDERS: ATTEND Family Medicine
DX: E86.0 Dehydration (principal); D64.9 Anemia, unspecified

== ENCOUNTER → 2017-09-23 | Outpatient (CLI) | payer OTHER ==
[2017-09-23 12:33] LABS: BASO % 0.2 %; BASO ABS # 0.02 K/uL (0-0.2); EOS % 0.7 %; EOS ABS # 0.06 K/uL (0-0.5); HEMATOCRIT 34.5 % (37-47); HEMOGLOBIN 11.2 g/dL (12.0-16.0); IG# 0.03 K/uL (0.00-0.02); LYMPH % 16.1 %; LYMPH ABS # 1.41 K/uL (1.2-3.4); MEAN CELL VOLUME 99.7 fL (80-100); MEAN CORPUSCULAR HEMOGLOBIN 32.4 pg (25-34); MEAN CORPUSCULAR HGB CONC 32.5 g/dl (32-36); MEAN PLATELET VOLUME 10.3 fL (7.4-10.4); MONO % 10.5 %; MONO ABS # 0.92 K/uL (0.11-0.59); NEUT % 72.2 %; NEUT ABS # 6.33 K/uL (1.4-6.5); PLATELET COUNT 230 K/uL (130-400); RED CELL DISTRIBUTION WIDTH CV 14.9 % (11.5-14.5); RED CELL DISTRIBUTION WIDTH SD 51.1 fL (36.4-46.3); WHITE BLOOD COUNT 8.77 K/uL (4.8-10.8)
[2017-09-23 14:09] LABS: ALBUMIN 3.1 gm/dl (3.4-5.0); ALT/SGPT 49 U/L (12-78); AST/SGOT 47 U/L (15-37); BLOOD UREA NITROGEN 15 mg/dl (7-18); CALCIUM 8.9 mg/dl (8.5-10.1); CARBON DIOXIDE 27 mmol/L (21-32); CHOLESTEROL 199 mg/dl (0-200); CREATININE 2.01 mg/dl (0.60-1.20); GLUCOSE 111 mg/dl (70-99); POTASSIUM 4.8 mmol/L (3.5-5.1); SODIUM 138 mmol/L (136-145)
[2017-09-23 14:15] LABS: ALKALINE PHOSPHATASE 85 U/L (45-117); LDL CHOLESTEROL CALCULATED 124 mg/dl; TOTAL PROTEIN 7.5 gm/dl (6.4-8.2)
== END | disposition home or self-care (01) ==
LOC: C.LABMFLN 06:58
PROVIDERS: ATTEND Family Medicine
DX: E78.00 Pure hypercholesterolemia, unspecified (principal); I10 Essential (primary) hypertension; I71.4 Abdominal aortic aneurysm, without rupture; I73.9 Peripheral vascular disease, unspecified; M85.80 Other specified disorders of bone density and structure, unspecified site; D64.9 Anemia, unspecified; N28.9 Disorder of kidney and ureter, unspecified

== ENCOUNTER → 2017-09-30 | Outpatient (CLI) | payer OTHER ==
[2017-09-30 16:10] LABS: BLOOD UREA NITROGEN 19 mg/dl (7-18); CALCIUM 9.2 mg/dl (8.5-10.1); CARBON DIOXIDE 26 mmol/L (21-32); CREATININE 2.57 mg/dl (0.60-1.20); GLUCOSE 96 mg/dl (70-99); POTASSIUM 5.3 mmol/L (3.5-5.1); SODIUM 137 mmol/L (136-145)
== END | disposition home or self-care (01) ==
LOC: C.LABMFLN 08:07
PROVIDERS: ATTEND Family Medicine
DX: N28.9 Disorder of kidney and ureter, unspecified (principal)

== ENCOUNTER → 2017-10-07 | Outpatient (CLI) | payer OTHER ==
[2017-10-07 12:55] LABS: BASO % 0.3 %; BASO ABS # 0.03 K/uL (0-0.2); EOS % 0.5 %; EOS ABS # 0.05 K/uL (0-0.5); HEMATOCRIT 32.6 % (37-47); HEMOGLOBIN 10.8 g/dL (12.0-16.0); IG# 0.03 K/uL (0.00-0.02); LYMPH % 16.5 %; LYMPH ABS # 1.59 K/uL (1.2-3.4); MEAN CELL VOLUME 99.7 fL (80-100); MEAN CORPUSCULAR HGB CONC 33.1 g/dl (32-36); MEAN PLATELET VOLUME 10.1 fL (7.4-10.4); MONO % 9.8 %; MONO ABS # 0.94 K/uL (0.11-0.59); NEUT % 72.6 %; NEUT ABS # 6.98 K/uL (1.4-6.5); PLATELET COUNT 223 K/uL (130-400); RED CELL DISTRIBUTION WIDTH SD 61.5 fL (36.4-46.3); WHITE BLOOD COUNT 9.62 K/uL (4.8-10.8)
[2017-10-07 14:37] LABS: ALBUMIN 3.3 gm/dl (3.4-5.0); ALT/SGPT 53 U/L (12-78); AST/SGOT 48 U/L (15-37); BLOOD UREA NITROGEN 37 mg/dl (7-18); CALCIUM 9.3 mg/dl (8.5-10.1); CARBON DIOXIDE 27 mmol/L (21-32); CREATININE 2.79 mg/dl (0.60-1.20); GLUCOSE 104 mg/dl (70-99); SODIUM 138 mmol/L (136-145)
[2017-10-07 14:39] LABS: ALKALINE PHOSPHATASE 80 U/L (45-117); TOTAL PROTEIN 7.6 gm/dl (6.4-8.2)
== END | disposition home or self-care (01) ==
LOC: C.LABMFLN 07:04
PROVIDERS: ATTEND Family Medicine
DX: C34.31 Malignant neoplasm of lower lobe, right bronchus or lung (principal)

== ENCOUNTER → 2017-10-07 | Outpatient (CLI) | payer OTHER | END | disposition home or self-care (01) | LOC: C.LAB1850 16:15 | PROVIDERS: ATTEND Internal Medicine Nephrology | DX: N28.9 Disorder of kidney and ureter, unspecified (principal) ==

== ENCOUNTER → 2017-10-10 | Outpatient (CLI) | payer OTHER ==
--- NOTE | 2017-10-10 09:03 | DIAGNOSTIC IMAGING REPORT ---
RETROPERITONEAL COMPLETE CLINICAL HISTORY: 71 years-old Female presenting with N28.9 Acute renal insufficiency. TECHNIQUE: Real-time grayscale and limited color Doppler ultrasound imaging of the kidneys and bladder was performed. COMPARISON: None. FINDINGS: Right kidney: Increased echogenicity of renal parenchyma. Right kidney measures 7.7 cm. No hydronephrosis. No convincing evidence of calculus or mass. Left kidney: Increased echogenicity of renal parenchyma. Left kidney measures 11.8 cm. No hydronephrosis. No convincing evidence of calculus or mass. Bladder: Normal. Bilateral ureteral jets present. Other: None. IMPRESSION: 1. Right renal atrophy and bilateral medical renal disease. No hydronephrosis. Electronically signed by: Valentin Chatterjee M.D. 10/10/2017 9:02 AM Dictated Date/Time: 10/10/2017 8:59 AM
--- NOTE | 2017-10-10 09:07 | DIAGNOSTIC IMAGING REPORT ---
DUPLEX RENAL ARTERY ULTRASOUND CLINICAL HISTORY: N28.9 Acute renal insufficiency COMPARISON STUDY: Abdomen and pelvis CTA 01/26/2016. FINDINGS: There is again noted an infrarenal abdominal aortic aneurysm which measures 5.1 x 4.4 cm in maximal diameter. This is similar in size compared to the prior study. This contains a large amount of thrombus. The lumen of the aneurysm measures 1.7 cm. The aneurysm measures approximately 8 cm in length. Atrophic right kidney. Peak systolic velocity within the right renal artery was 60 cm/s and within the left renal artery was 136 cm/s. The left renal vein is patent. Elevated resistive indices within the bilateral renal arcuate arteries measure up to 1.0. No hydronephrosis. IMPRESSION: 1. No hemodynamically significant stenosis within the bilateral renal arteries. 2. No significant change in size in the infrarenal abdominal aortic aneurysm which measures up to 5.1 cm in diameter. 3. Echogenic and atrophic right kidney. 4. Elevated resistive indices within the bilateral renal arcuate arteries which may be a result of the medical renal disease. No hydronephrosis. Electronically signed by: Frank Harrington M.D. 10/10/2017 9:06 AM Dictated Date/Time: 10/10/2017 8:58 AM
== END | disposition home or self-care (01) ==
LOC: C.ULTR 07:43
PROVIDERS: ATTEND Internal Medicine Nephrology
DX: N28.9 Disorder of kidney and ureter, unspecified (principal); N26.1 Atrophy of kidney (terminal)

== ENCOUNTER → 2017-10-14 | Outpatient (CLI) | payer OTHER ==
[2017-10-14 13:27] LABS: BLOOD UREA NITROGEN 30 mg/dl (7-18); CARBON DIOXIDE 28 mmol/L (21-32); CREATININE 3.32 mg/dl (0.60-1.20); GLUCOSE 96 mg/dl (70-99); POTASSIUM 3.9 mmol/L (3.5-5.1); SODIUM 136 mmol/L (136-145)
== END | disposition home or self-care (01) ==
LOC: C.LABMFLN 07:14
PROVIDERS: ATTEND Family Medicine
DX: N28.9 Disorder of kidney and ureter, unspecified (principal)

== ENCOUNTER → 2017-10-14 | Outpatient (CLI) | payer OTHER ==
--- NOTE | 2017-10-14 13:26 | DIAGNOSTIC IMAGING REPORT ---
CT SCAN OF THE CHEST WITHOUT IV CONTRAST CLINICAL HISTORY: Follow-up lung cancer. COMPARISON STUDY: Chest CT dated 03/15/2017. TECHNIQUE: CT scan of the thorax was performed from the thoracic inlet to the upper abdomen. Images are reviewed in the axial, sagittal, and coronal planes. IV contrast was not administered for this examination as per the referring clinician. A dose lowering technique was utilized adhering to the principles of ALARA. CT DOSE: 189.50 mGy.cm FINDINGS: Thyroid: Imaged portions of the thyroid gland are normal in size and attenuation. Thoracic aorta: There is advanced atherosclerotic calcification of the thoracic aorta, which is normal in caliber and demonstrates standard 3-vessel arch anatomy. A left subclavian central venous infusion port is in place. Heart: The heart is enlarged and there is a small pericardial effusion. The coronary arteries and aortic valve leaflets are densely calcified. The pulmonary arteries are enlarged suggesting pulmonary artery hypertension Lungs and pleural spaces: Advanced emphysema is identified. Trace pleural effusions are noted. There is been significant decrease in size of right lower lobe pulmonary masses as compared 03/15/2017. The right infrahilar mass lesion best seen on image #198 now measures 3.0 x 2.2 cm (previously measured 4.3 x 3.4 cm). The posterior right lower lobe nodule on image #174 measures 2.1 x 1.8 cm (previously measured 3.1 x 2.5 cm). No new pulmonary lesion is identified. Nonspecific consolidative changes seen in the anterior/inferior right middle lobe. A fat-containing Bochdalek hernia is seen at the right lung base. A large calcified granuloma is seen in the left lower lobe. Mediastinum: There is a densely calcified subcarinal node. A precarinal node on image #113 measures 9 mm in short axis. Melina: Not well assessed without IV contrast. Axillae: There is no axillary lymphadenopathy. Upper abdomen: There is markedly asymmetric cortical atrophy of the partially imaged right kidney as compared to the left. Calcified splenic and hepatic granulomas are observed. There is a tiny hiatal hernia. No adrenal lesion is seen. An abdominal aortic aneurysm is partially visualized. The tip of an IVC filter is also partially imaged. Skeletal structures: The skeletal structures are osteopenic. Degenerative change and kyphoscoliosis are noted in the thoracic spine. No lytic or blastic bony lesions are seen. IMPRESSION: 1. Cardiomegaly and advanced emphysema. 2. Interval decrease in size of 2 right lower lobe pulmonary masses as compared to the 03/15/2017 examination. 3. No new pulmonary lesion is identified. 4. Consolidative change is seen in the anterior/inferior right middle lobe. This could be on an infectious/inflammatory basis or could be treatment related. Clinical correlation will be required. 5. Trace pleural effusions. 6. Additional findings as above. Electronically signed by: Rome Stafford M.D. 10/14/2017 1:25 PM Dictated Date/Time: 10/14/2017 1:00 PM
== END | disposition home or self-care (01) ==
LOC: C.CTS 12:45
PROVIDERS: ATTEND Internal Medicine Hematology & Oncology
DX: C34.31 Malignant neoplasm of lower lobe, right bronchus or lung (principal); I51.7 Cardiomegaly; J43.9 Emphysema, unspecified